=== PATIENT | female | born 1990 | race Hispanic/Latino ===

== ENCOUNTER 2018-08-27 01:30 | Emergency (ER) | payer MEDICAID, MEDICARE ==
[2018-08-27 05:23] LABS: HCG Qualitative,Urine Negative (Negative)
[2018-08-27 05:24] LABS: Bilirubin,Urine NEG (Negative); Blood,Urine NEG (Negative); Calcium Oxalate Crystals,Urine 2+; Color,Urine Yellow (Yellow); Mucus,Urine 3+ /HPF; Protein,Urine <15 mg/dL mg/dL (Negative); Urobilinogen,Urine < 2.0 mg/dL (<2.0)
--- NOTE | 2018-08-27 05:28 | Emergency Department Report ---
ED Anxiety HPI - General Chief Complaint: Anxiety Stated Complaint: ASTHMA Time Seen by Provider: 08/27/18 04:46 Source: patient, EMS Mode of arrival: Ambulatory - History of Present Illness Initial Comments: pt is a 27 y/o w/f with hx of asthma , GERD, and anxiety who presents for complaint anxiety pt denies SI or HI, states just worried about stuff makes her sob breath sometimes pt denie sob at this time. denies wheezing no n/v no cp no dizziness no lightheadedness no back pain no Suicidal no Homicidal ideations pt endorses [place] dwelling does see [facility] for panic attacks. Complaint: anxiety Onset/Timin -: days(s) Place: home Previous History of Same: Yes Severity: mild - Related Data Home Medications: Previous Rx's Medication Instructions Recorded Last Taken Type ALBUTEROL Inhaler(NF) [VENTOLIN 2 puff IH Q4H PRN #1 inha 08/27/18 Unknown Rx Inhaler(NF)] Allergies/Adverse Reactions: Allergies Allergy/AdvReac Type Severity Reaction Status Date / Time haloperidol [From Haldol] Allergy Anaphylaxis Verified 08/27/18 01:38 ED Review of Systems ROS: Stated complaint: ASTHMA Other details as noted in HPI ED Past Medical Hx - Past Medical History Previous Medical History?: Yes Hx GERD: Yes Hx Psychiatric Treatment: Yes (panic attacks) Hx Asthma: Yes Additional medical history: acid reflux - Surgical History Past Surgical History?: Yes Additional Surgical History: left arm left knee and throat - Social History Smoking Status: Never Smoker Substance Use Type: None - Medications Home Medications: Home Medications Medication Instructions Recorded Confirmed Last Taken Type ALBUTEROL Inhaler(NF) [VENTOLIN 2 puff IH Q4H PRN #1 inha 08/27/18 Unknown Rx Inhaler(NF)] ED Physical Exam - General Limitations: No Limitations ED Course Vital Signs 08/27/18 01:39 Temperature 98.4 F Pulse Rate 111 H Respiratory 18 Rate Blood Pressure 135/82 O2 Sat by Pulse 97 Oximetry ED Medical Decision Making - Lab Data Labs 08/27/18 05:13 Urine Color Yellow Urine Turbidity Slightly-cloudy Urine pH 5.0 Ur Specific [place] 1.030 Urine Protein <15 mg/dl Urine Glucose (UA) Neg Urine Ketones Neg Urine Blood Neg Urine Nitrite Neg Ur Reducing Substances Not Reportable Urine Bilirubin Neg Urine Ictotest Not Reportable Urine Urobilinogen < 2.0 Ur Leukocyte Esterase Neg Urine WBC (Auto) 2.0 Urine RBC (Auto) 1.0 U Epithel Cells (Auto) 5.0 Calcium Oxalate Crystal 2+ Urine Mucus 3+ Urine HCG, Qual Negative - Radiology Data Radiology results: report reviewed, image reviewed FINAL REPORT EXAM: XR CHEST ROUTINE 2V HISTORY: sob hx asthma TECHNIQUE: PA and lateral chest radiographs PRIORS: None. FINDINGS: No mediastinal shift. Cardiac silhouette is not enlarged. No pneumothorax, effusion, or focal pulmonary opacity. No acute skeletal finding. IMPRESSION: No pneumothorax or other acute pulmonary finding. Transcribed By: MB Dictated By: KAMARI WILD MD Electronically Authenticated By: KAMARI WILD MD Signed Date/Time: 08/27/18549 DD/ 7 TD/TT: 08/27/18547 - Medical Decision Making Cxr: no opacities no infiltrates, UA: normal, hcg:neg, anxiety relieved plan: refill albuterol , pt will follow up psychiatrist today with [facility]. pt with nad at this time. Critical care attestation.: If time is entered above; I have spent that time in minutes in the direct care of this critically ill patient, excluding procedure time. ED Disposition Clinical Impression: Anxiety, Medication refill Disposition: -01 TO HOME OR SELFCARE Is pt being admited?: No Does the pt Need Aspirin: No Condition: Stable Instructions: Anxiety (ED) Prescriptions: ALBUTEROL Inhaler(NF) [VENTOLIN Inhaler(NF)] 2 puff IH Q4H PRN #1 inha PRN Reason: shortness of breath wheezing Referrals: CATIE WOMACK [Other] - 3-5 Days Forms: Work/School Release Form(ED) Time of Disposition: 06:19
--- NOTE | 2018-08-27 05:50 | XRay Report ---
FINAL REPORT EXAM: XR CHEST ROUTINE 2V HISTORY: sob hx asthma TECHNIQUE: PA and lateral chest radiographs PRIORS: None. FINDINGS: No mediastinal shift. Cardiac silhouette is not enlarged. No pneumothorax, effusion, or focal pulmon zeus opacity. No acute skeletal finding. IMPRESSION: No pneumothorax or other acute pulmonary finding.
[2018-08-27 06:41] VITALS: BP 130/78
== END 2018-08-27 06:34 | disposition home or self-care (01) ==
LOC: ED 01:30
DX: F41.9 Anxiety disorder, unspecified (principal); Z76.0 Encounter for issue of repeat prescription; K21.9 Gastro-esophageal reflux disease without esophagitis; J45.909 Unspecified asthma, uncomplicated; Z88.8 Allergy status to other drugs, medicaments and biological substances
CPT/HCPCS: 71046; 81001; 81025